=== PATIENT | female | born 1980 | race Caucasian/White ===

== ENCOUNTER 2017-02-28 06:00 | Inpatient (IN) ==
[2017-02-28] MEDS ORDERED: CARBOPROST 250 MCG/ML INJECTION IM PRN (06:14)
[2017-02-28] MEDS ORDERED: METHYLERGONOVINE 0.2 MG/ML INJECTION IM PRN (06:14)
[2017-02-28] MEDS ORDERED: CALCIUM CARBONATE Chewable 500mg TABLET PO PRN ×2 (06:14→13:21)
[2017-02-28] MEDS ORDERED: D5LR 1,000 ML IV PRN (06:14)
[2017-02-28] MEDS ORDERED: LIDOCAINE 1% (10mg/ml) 2mL INJ PF SDV ID PRN (06:14)
[2017-02-28] MEDS ORDERED: MAG-AL + SIM ORAL LIQUID 30ml PO PRN ×2 (06:14→13:21)
[2017-02-28] MEDS ORDERED: ACETAMINOPHEN 500 MG TABLET PO PRN ×2 (06:14→13:21)
[2017-02-28] MEDS ORDERED: OXYTOCIN DRIP 30 UNIT/500 ML ML IV PRN (06:14)
--- OUTSIDE RECORDS SUMMARY | 2017-02-28 06:17 | External Medical Summary | Continuity of Care Document ---
:1980 Author Organization [facility] Address [address] [place] [id number] Phone Care Team Providers Name Role Phone Destin Saldivar MD, FAAFP Unavailable Unavailable Allergies, Adverse Reactions, Alerts Substance Reaction Severity Status No Known Drug Allergies Unknown Active Medications Medication Instructions Dosage Effective Dates Status Comments (start - stop) Keflex 500 mg capsule take 1 capsule by ORAL 500 MG - Active route 2 times every day Sudafed 30 mg tablet take 2 tablet by oral - Active route every 6 hours as needed Probiotic 10 billion - Active cell capsule + DHA 28 mg - Active iron-975 mcg-200 mg oral pack Problems Condition Effective Dates (start - stop) Clinical Status Supervision of elderly multigravida, - third trimester 34 weeks gestation of - Supervision of elderly multigravida, - third trimester 37 weeks gestation of - Other pruritus Irregular Menses Supervision of elderly multigravida, - first trimester Encntr screen for infections w sexl - mode of transmiss Encounter for screening for oth - infec/parastc diseases Encounter for screening of - mother 10 weeks gestation of - Supervision of elderly multigravida, - second trimester 24 weeks gestation of - Supervision of elderly multigravida, - second trimester 18 weeks gestation of - Supervision of elderly multigravida, - second trimester Low lying placenta NOS or w/out - hemorrhage, second trimester 20 weeks gestation of - Supervision of elderly multigravida, - second trimester 14 weeks gestation of - Supervision of elderly multigravida, - second trimester 20 weeks gestation of - Supervision of elderly multigravida, - third trimester Encounter For Screening For - Streptococcus B 36 weeks gestation of - Supervision of elderly multigravida, - third trimester 28 weeks gestation of - Supervision of elderly multigravida, - third trimester 30 weeks gestation of - Supervision of elderly multigravida, - third trimester 32 weeks gestation of - Supervision of elderly multigravida, - third trimester Low Lying Placenta Nos Or W/out - Hemorrhage, Third Trimester 32 weeks gestation of - Oth related conditions, unspecified trimester Encounter for test, result - negative Oth related conditions, unspecified trimester Pap Smear Screening, Cervix - Irregular Menses - Active Active Active Procedures Procedure Date OB Visit No Charge Results Test Name Date and Time Measure Units Reference Range Abnormal Flag Comments Unknown Advance Directives Directive Yes / No Effective Date File Name Unknown Encounters Encounter Practice Location Reason(s) Diagnoses Date Provider Care Team Description For Visit Members Matty Prieto Supervision of Sergey Referring In Womens elderly 3-201 [place]. 700 Provider: melina James, 8 Medical Destin PAGAN Box third [email or web address] Center [facility] 1522, weeks gestation [facility], [address] [place], of 120, Medical [facility] [id number], [place], Drive, [id number] [place], tel: , [place], [address]. [address] tel: tel: [phone] Prieto Supervision of Dec-2 Sergey Referring In Womens elderly 8-201 [place]. 700 Provider: miya Jamesgravijoey, 7 Medical Destin PO Box third Center [facility] 1522, trimesterEncounte [facility], [address] [place], r For 120, Medical [place], Screening [facility] [id number], Streptococcus B36 [place], [facility], weeks gestation [id number] [place], tel:+ of , [place], tel: tel:[phone] Prieto Supervision of Dec-1 Sergey Referring In Womens elderly 3- [place]. 700 Provider: miya Jamesgravijoey, 7 Medical Destin PO Box third [email or web address] Center [facility] 1522, weeks gestation [facility], [address] [place], of 120, Medical [facility] , [place], [facility], [place], tel: , [place], tel: tel:[phone] Prieto Supervision of Nov-2 Sergey Referring In Womens elderly 9 [place]. 700 Provider: jerri Jamesavijoey, 7 Medical Destin PO Box third [id number] Center [facility] 1522, weeks gestation [facility], [address] [place], of 120, Medical [facility] [id number], [place], [facility], [id number] [place], tel: , [place], tel: tel:[phone] Prieto Supervision of Nov-2 Sergey Referring In Womens Ultrasound elderly 9- [place]. 700 Provider: miya Jamesgravijoey, 7 Medical Destin PO Box third [place] [facility] 1522, trimesterLow [facility], [address] [place], Lying Placenta 120, Medical MARK, Nos Or W/out [facility] [id number], Hemorrhage, Third [place], [facility], [id number] weeks [id number] [place], tel:+ gestation of , [place], tel: tel:[phone] Prieto Supervision of Nov-1 Sergey Referring In Womens elderly 6-201 [place]. 700 Provider: Health LYLA, multigravida, 7 Medical Destin PO Box third [email or web address] Center [facility] 1522, weeks gestation [facility], [address] [place], of 120, Medical MARK Prieto, Center , [place], [facility], [id number] [place], tel:+ , [place], [address] tel: tel:[phone] Prieto Supervision of Nov-0 Sergey Referring In Womens elderly 2-201 [place]. 700 Provider: Sheree ARITA, multigravida, 7 Medical Destin PO Box third [email or web address] Center [facility] 1522, weeks gestation [facility], [address] [place], of 120, Medical [place] FLORES, [place] , [place], [facility], [id number] [place], tel: , [place], [address] tel: tel:[phone] Prieto Supervision of Oct-0 Sergey Referring In Womens elderly 5-201 [place]. 700 Provider: Sheree ARITA, miyagravida, 7 Medical Destin PO Box second Center [facility] 1522, [email or web address] weeks [facility], [address] [place], gestation of 120, Medical [place], [place], [place] , [place], [facility], [id number] [place], tel: , [place], [address] tel: tel:[phone] Prieto Supervision of Sep-0 Sergey Referring In Womens elderly 6-201 [place]. 700 Provider: Sheree ARITA, miyagravida, 7 Medical Destin PO Box second Center [facility] 1522, trimesterLow [facility], [address] [place], lying placenta 120, Medical [place], NOS or w/out [facility] , hemorrhage, [place], Drive, second [id number] [place], tel:+ [email or web address] weeks , [place], [address] gestation of tel: tel:[phone] Prieto Supervision of Sep-0 Sergey Referring In Womens Ultrasound elderly 6- [place]. 700 Provider: Sheree ARITA multigravida, 7 [facility] Center [facility] 1522, [email or web address] weeks [facility], [address] [place], gestation of 120, Medical [place], [place], [place] [id number], [place], Drive, [id number] [place], tel:+ , [place], tel: tel:[phone] Prieto Supervision of Sergey Referring In Womens elderly 2- [place]. 700 Provider: Sheree ARITA multigravijoey, 7 [facility] Center [facility] 1522, [email or web address] weeks [facility], [address] [place], gestation of 120, Medical [place], [facility] [id number], [place], Drive, [id number] [place], tel:+ , [place], tel: tel:[phone] Prieto Supervision of Sergey Referring In Womens elderly 7- [place]. 700 Provider: miya Jamesgravijoey, 7 [facility] Center [facility] 1522, weeks [facility], [address] [place], gestation of 120, Medical [place], [facility] [id number], [place], Drive, [id number] [place], tel: , [place], tel: tel:[phone] Prieto Supervision of Sergey Referring In Womens elderly 9- [place]. 700 Provider: Sheree ARITA multigravida, 7 [facility] first Center [facility] 1522, trimesterEncntr [facility], [address] [place], screen for 120, Medical [place], infections w sexl [facility] , mode of [place], Drive, transmissEncounte [id number] [place], tel: r for screening , [place], for oth tel: tel:[phone] infec/parastc [phone] [facility] for screening of [id number] weeks gestation of Matty Prieto Ot Los-1 Sergey Referring In Womens related 3-201 [place]. 700 Provider: Health PA, conditions, 7 Medical [facility] Box unspecified Center [facility] 1522, trimester , [place], [address] [place], 120, Medical [place], Center [id number], [place], [facility], [id number] [place], tel: , [place], [address] tel: tel: [phone] Matty Prieto Ot May-2 Sergey Referring In Womens related 3-201 [place]. 700 Provider: Health PA, conditions, 7 Medical Destin PO Box unspecified Center [facility] 1522, trimesterEncounte , [place], [address] [place], r for 120, Medical [place], test, result [facility] [id number], negative [place], [facility] [id number] [place], tel: , [place], [address] tel: tel: [phone] Matty Prieto Other Oct- Smith Referring In Womens pruritusIrregular 8-201 [facility]. Provider: Sheree ARITA, Menses [address] [facility] 1522, Center W, [address], [facility], [facility] [place], [place] [id number], [place], [facility], [place] FLORES, tel:+ [phone] [place], [address] , [place]. tel: tel: [phone] Matty Prieto Apr-1 Sergey Referring In Womens 9-201 [place]. 700 Provider: Health PA, [address] [facility]22, [facility], [address] [place], 120, Medical [place] LFORES, Center [id number], [place], [facility], [id number] [place], tel: , . [place], tel: tel: [phone] Prieto Feb-2 Sergey Referring In Womens 3-201 [place]. 700 Provider: Sheree PA, [address] [facility] 1522, [facility], [address] [place], 120, Medical [place] FLORES, [place] [id number], [place], [facility], [id number] [place], tel:+2 , [place], tel: tel:[phone] Matty Prieto Arturo-2 Sergey Referring In Womens 6-201 [place]. 700 Provider: Health LYLA, 6 [facility] Yariel [address], [facility], [address] [place], 120, Medical MARK Prieto, [place] , [place], [facility], [id number] [place], tel:+[phone] , [place], tel: tel:[phone] Matty Prieto Nov-2 Sergey Referring In Womens 4-201 [place]. 700 Provider: Health LYLA, 5 [facility] [address] [place] [address], 120, Medical [place] [facility] [id number], [place], [place] [address], [place] [id number] [place], tel:+ , [place], tel: [phone] [id number] tel:[phone] Matty Prieto Pap Smear Oct-2 Sergey Referring In Womens Screening, Cervix 7-201 [place]. 700 Provider: Health LYLA, 5 [facility] [address], [facility], [address] [place] [address], 120, Medical [place] [facility] [id number], [place], [facility], [id number] [place], tel:+ , [place], tel: [phone] Matty Prieto Arturo-0 Sergey Referring In Womens 6-201 [place]. 700 Provider: Sheree ARITA, 5 [facility] [address], [address] [place] [address], 120, Medical [place] FLORES, [place] [id number], [place], [facility] 120, [place] [id number] [place], tel:+316 , . [place], tel: [phone]. [id number] tel:[phone] Matty Prieto Nov-0 Sergey Referring In Womens 4-201 [place]. 700 Provider: Health LYLA, 4 [facility] Sergey Ernandez 1522, , [place] [address] [place], [facility] [place], [facility], [facility] [id number], [place], [facility] 120, [id number] Prieto, tel: , . [place], tel: [phone]. [id number] tel:[phone] Matty Prieto May-0 Smith In Womens 1-200 [place]. Health LYLA, 9 700 [facility] 1522, [place] [address]inny, [facility] [place], 120, [id number], Pri[place], [facility], tel: [phone] , . tel: [phone] Family History Family Member Diagnosis Age At Onset Maternal Grandmother Arthritis Maternal Grandmother Hypercholesterolemia Maternal Grandmother Hypertension Immunizations Vaccine Date Status Comments Tdap completed Source: New Immunization Record Tdap completed Source: New Immunization Record Influenza, injectable, completed Source: New Immunization Record quadrivalent, preservative free, 3 yrs or older Tdap completed Source: New Immunization Record Influenza, injectable, completed Source: New Immunization Record quadrivalent, preservative free, 3 yrs or older Payers Payer name Insurance type Covered constitution party ID Authorization(s) [facility] [id number] [facility] [id number] [facility] [id number] [facility] [id number] [facility] [id number] [facility] [id number] Social History Type Description Quantity Date Captured Alcohol Use Details No Caffeine Use Details Unknown Tobacco Use Status Unknown Smoking Status Never smoker Vital Signs Date / Height Weight BMI Pulse Blood Temperature Respiratory Body Head BMI Time: Rate Pressure Rate Surface Circumference percentile Area 246.10 38.5 130/78 2017 lbs 4 mm[Hg] 3:57 kg/m PM eter (2) Chief Complaint And Reason For Visit Unknown Chief Complaint And Reason For Visit Reason For Referral Reason For Referral Unknown Plan Of Care Date Type Action Status Goal Lifestyle education regarding completed diet Appointment Mary Alfredo BOOKED Future Order: Radiology Order OB Detailed Complete Ultrasound Ordered ([id number]) Future Order: Radiology Order Ultrasound OB Follow-up ([id number]) Ordered Future Order: Lab Order Pap Smear With HPV Reflex If Ordered ASCUS ([id number]) Date Type Problem Goal Intervention Status Start Date Unknown. History Of Present Illness Encounter Date Complaint History Of Present Illness This patient has no known history of present illness Functional Status Encounter Date Functional Assessment Cognitive Assessment Unknown Medications Administered Medication Instructions Dosage Effective Dates (start - stop) Status Comments Drug Treatment Unknown Instructions Date Instruction Additional Information HIV and other routine tests risk factors identified by history anticipated course of care nutrition and weight gain counseling, special diet toxoplasmosis precautions (cats / raw meat) smoking counseling domestic violence seat belt use childbirth classes / hospital facilities hospital registration sexual activity exercise indications for ultrasound influenza vaccine environmental / work hazards travel use of any medications (including supplements, vitamins, herbs, OTC drugs) genetic testing Zika virus assessment & precautions Giving encouragement to exercise Related to Body mass index 40.0-44.9 Lifestyle education regarding diet Related to Body mass index 40.0-44.9 HIV and other routine tests risk factors identified by history anticipated course of care nutrition and weight gain counseling, special diet toxoplasmosis precautions (cats / raw meat) sexual activity exercise indications for ultrasound influenza vaccine environmental / work hazards travel use of any medications (including supplements, vitamins, herbs, OTC drugs) domestic violence seat belt use childbirth classes / hospital facilities hospital registration genetic testing
[2017-02-28] MEDS: LR 1,000 ML IV PRN ×3 (06:58→09:19)
[2017-02-28] MEDS ORDERED: AMPICILLIN 2 GM in NS 100 ML IV ONE (07:00)
[2017-02-28 07:21] VITALS: BMI 38.5
--- NOTE | 2017-02-28 07:58 | Anesthesia Preoperative Report ---
Anesthesia Epidural/Spinal Rec - Date and Time Date: 02/28/17 Preoperative Diagnosis: G8, P3, 39+1 Procedure: Labor Epidural Plan: Epidural - Vital Signs Vital Signs: Temperature 97.7 F 02/28/17 07:11 Pulse Rate 97 02/28/17 07:11 Respiratory Rate 20 02/28/17 07:11 Blood Pressure 122/76 02/28/17 07:11 Pulse Oximetry 96 02/28/17 07:11 /Para: P:3 - Medictaions & Allergies Inpatient Medications: Current Medications Acetaminophen (Tylenol) 500 - 1,000 mg PO Q4H PRN PRN Reason: Pain Al Hydroxide/Mg Hydroxide (Maalox Plus) 30 ml PO Q3H PRN PRN Reason: Indigestion Calcium Carbonate (Tums) 500 - 1,000 mg PO Q2H PRN PRN Reason: Indigestion Carboprost Tromethamine (Hemabate) 250 mcg IM O PRN PRN Reason: .Downtime Dextrose/Lactated Ringer's (Dextrose 5%-Lactated Ringers) 1,000 mls @ 125 mls/ hr IV .Q8H PRN PRN Reason: Labor Last Admin: 02/28/17 06:59 Dose: 125 mls/hr Lactated Ringer's (Lactated Ringers) 1,000 mls @ 999 mls/hr IV .Q1H1M PRN Last Admin: 02/28/17 06:58 Dose: 999 mls/hr Oxytocin (Pitocin Drip) 30 unit in 500 mls @ 2 mls/hr IV .Q24H PRN; Protocol PRN Reason: Induction/Augmentation Last Admin: 02/28/17 06:59 Dose: 2 mls/hr Ampicillin Sodium 1 gm/ Sodium (Chloride) 100 mls @ 200 mls/hr IV Q4H JOEY Lidocaine HCl (Xylocaine-Mpf 1% Vial) 0.2 mg ID O PRN PRN Reason: IV Start Methylergonovine Maleate (Methergine) 0.2 mg IM O PRN Misoprostol (Cytotec) 800 mcg MA ONCE PRN Allergies/Adverse Reactions: Allergies Allergy/AdvReac Type Severity Reaction Status Date / Time No Known Drug Allergies AdvReac Unknown Unverified 06/27/16 14:28 - Home Medications Home Medications: Home Medications Medication Instructions Recorded Confirmed Type control #0 06/27/16 History - Medical History Gastrointestional: Reports: Morbid Obesity Neuro/Musculoskeletal: Reports: Loss of Consciousness (before prior epidural, possible vagal response ), Other (scoliosis, sees chiropractor for lower back pain ) - Surgical History Surgery/Treatment: REPORT: Other (lithotripsy) Reproductive Surgery/Treatment: Reports: Oophorectomy (left) DENIES: Section Anesthesia Reactions: None Hx Family Anesthesia Reaction: No - Social History Smoking Status: Never smoker - Pertinent Findings Lab Data: CBC and BMP 02/28/17 06:35 - Physical Exam Respiratory Exam: lungs clear, bilateral breath sounds equal Cardiovascular Exam: regular rate and rhythm, no murmur - Airway Assessment Mallampati Score: II TMD: 3 Fingerbreadths Neck Extension: good Overall Assessment: may be difficult mask vent, may be difficult intubation - ASA ASA Score: 3 - Discussion Discussion: Discussed risks/options/alternatives of anesthesia and questions answered. Patient consents. Nursing pain assessment noted. Attestation Statement: Prior to the delivery of any anesthetic medication, I examined the patient, developed the plan, obtained the patient's consent and discussed the risk and benefits of the procedure with the patient/guardian.
[2017-02-28] MEDS ORDERED: DiphenhydrAMINE 50 MG/ML INJECTION IVP PRN (09:34)
[2017-02-28] MEDS ORDERED: ROPIVACAINE 1% 10MG/ML INJ 200 MG, SUFentanil 50 MCG in NS 100 ML EPI PRN (09:34)
[2017-02-28] MEDS ORDERED: NALOXONE 0.4 MG/ML INJECTION IVP PRN (09:34)
[2017-02-28] MEDS ORDERED: ONDANSETRON 4 MG/2 ML INJECTION IVP PRN (09:34)
[2017-02-28] MEDS ORDERED: AMPICILLIN 1 GM in NS 100 ML IV SCH (11:00)
[2017-02-28] MEDS ORDERED: BENZOCAINE 20% SPRAY 0.5 ML MM ONE (13:21)
[2017-02-28] MEDS ORDERED: HYDROCORTISONE 2.5% CREAM 30gm RECTALLY PRN (13:21)
[2017-02-28] MEDS ORDERED: DiphenhydrAMINE 25 MG CAPSULE PO PRN (13:21)
[2017-02-28] MEDS: IBUPROFEN 800 MG TABLET PO PRN (16:15)
--- NOTE | 2017-02-28 16:42 | Labor and Delivery Note ---
DATE OF DELIVERY: 02/28/2017 DIAGNOSES 1. 36-year-old white female, G8, P3 at 39.1 weeks gestational age. 2. Pitocin induction of labor for history of macrosomia. 3. Advanced maternal age. 4. GBS prophylaxis. 5. Artificial rupture of membranes. 6. Epidural anesthesia. 7. Spontaneous vaginal delivery. 8. Male infant, 3845 g (8 pounds 7 ounces), 9//10 Apgars (Papi Santamaria). This is a patient of mine brought in for induction today based on history of macrosomia. She is 39.1 weeks gestational age. She has advanced maternal age. Ampicillin was used for GBS prophylaxis and she received two doses. Eventually she made it to complete dilation. For a long time the baby was high and OP but when it rotated to OA it came down in the pelvis. We pushed through two contractions and had a spontaneous vaginal delivery at 12:56 p.m. Infant was bulb suctioned after delivery of the head and then again after delivery of the body. Cord was doubly clamped and cut. The 's father cut the cord. Cord was allowed to drain for a 1 minute 45 seconds prior to cutting it. was initially placed on the mother's abdomen. Placenta delivered spontaneously and was intact. The perineum was intact. Maternal blood type is A+, rubella is immune. MTDD
[2017-02-28] MEDS: OXYTOCIN DRIP 30 UNIT/500 ML ML IV SCH (17:55)
[2017-02-28] MEDS: HYDROCODONE/APAP 5mg/325mg TABLET PO PRN (18:20)
[2017-03-01] MEDS: IBUPROFEN 800 MG TABLET PO PRN ×3 (00:48→18:18)
[2017-03-01] MEDS: HYDROCODONE/APAP 5mg/325mg TABLET PO PRN ×5 (00:49→21:05)
[2017-03-01] MEDS: OXYTOCIN DRIP 30 UNIT/500 ML ML IV SCH (09:57)
[2017-03-01] MEDS: DOCUSATE CALCIUM 240 MG CAPSULE PO SCH (10:25)
--- NOTE | 2017-03-01 10:57 | OB/GYN Progress Note ---
OB-Progress Note Free Text - Date Date: 03/01/17 - Progress Note Progress Note: vss af no c/o doing well q&a-krb
--- NOTE | 2017-03-01 12:47 | Anesthesia Postoperative Note ---
- Date and Time Date: 03/01/17 Time: 12:42 - Status Patient Participated in Evaluation: Patient Participated in Person Vital Signs: Temperature 97.8 F 03/01/17 06:16 Pulse Rate 66 03/01/17 06:16 Respiratory Rate 14 03/01/17 06:16 Blood Pressure 108/61 03/01/17 06:16 Pulse Oximetry 98 02/28/17 21:00 Respiratory Function: Airway Patent, Regular Respirations Cardiovascular Function: Regular Pulse Mental Status: Alert and Oriented Pain Intensity: 0 Hydration: Taking PO Fluids Complications During Recover: None Apparent Post Anesthesia Care Notes: ambulating without problems - Follow-Up Instructions Instructions: Per Surgeon
[2017-03-02] MEDS: IBUPROFEN 800 MG TABLET PO PRN ×2 (01:40→09:55)
[2017-03-02] MEDS: HYDROCODONE/APAP 5mg/325mg TABLET PO PRN ×3 (01:40→13:24)
[2017-03-02 07:08] VITALS: O2SAT 97
--- NOTE | 2017-03-02 08:07 | Progress Note ---
OB PP Progress Note Free Text - Date Date: 03/02/17 - Progress Note Progress Note: vss af no c/o dc to home today disc dc instructions f/u 5-6 wks q&a-krb
[2017-03-02] MEDS: DOCUSATE CALCIUM 240 MG CAPSULE PO SCH (09:30)
[2017-03-02 14:05] VITALS: BP 135/76; PULSE 70; RESP 16; TEMP 97.9
== END 2017-03-02 13:30 | disposition home or self-care (01) | DRG 775 ==
LOC: MC 06:09
PROVIDERS: ADMIT Obstetrics & Gynecology; ATTEND Obstetrics & Gynecology